=== PATIENT | male | born 1940 | race Caucasian/White ===

== ENCOUNTER → 2020-09-14 | Day surgery (SDC) | payer OTHER, BC ==
[~2020-09-14] VITALS: Ht 182.9 cm; Wt 99.8 kg
[~2020-09-14] MED LIST: ALLOPURINOL 10100 M1 PO; DILTIAZEM 24HR240 M1 PO; ELIQUIS5 MG PO; RAMIPRIL10 MG PO; TAMSULOSIN HCL0.4 MG PO
--- NOTE | 2020-09-15 17:10 | PATH ---
[facility] [place] [address] PATHOLOGY RPT PROCEDURE Name: NILSA GALEANA Room #: REG [facility] M.R.#: [id number] Admission: 09/14/20 Date of : 38 Discharge: Report #: [id number] Path Case #: [id number] [facility] Accession Number: [id number] . 01 Material submitted: . eyelid - RIGHT LOWER EYE LID-F.S.. Modifiers: right, lower . 01 Clinical history: . SKIN RIGHT LOWER LID, EXCISION - NO DEFINITIVE INVASIVE CARCINOMA EXCISION BASAL CELL CARCINOMA . 02 Frozen section diagnosis: . FROZEN SECTION DIAGNOSIS (Dr. Teressa Brewer) . FSA1. Skin, right lower lid, excision: - No definitive invasive carcinoma identified at margins on FS slides. . These findings are discussed with Dr. Jv Khanna in OR-6 at [facility] and a written report is placed in the patient's chart. . . GROSS DESCRIPTION Specimen is received fresh from the OR labeled with the patient's name, and "right lower eyelid", consists of an inverted triangular specimen measuring 1 cm from base to height and about 0.6 cm at base. The specimen is oriented as medial inferior and lateral. The medial margin is inked black, the inferior half of the lateral margin is inked blue, and the superior half of the lateral margin is inked green. At this point, the specimen is sectioned into 3 pieces and submitted for frozen section entirely as FSA1, this is subsequently submitted for permanent sections as A1. (IUV:aprn; 09/14/2020) . Frozen section performed at [facility], [address] , [place] [address]. IZV/MBR . 02 Diagnosis: Skin, right lower eyelid, excision: - No evidence of malignancy present within the current excision. - Chronic inflammation with reactive changes. - New margins of resection widely free of malignancy. (IUV:juan miguel; 09/15/2020) QMS 09/15/2020 1616 Local . 02 Electronically signed: . [facility] [address] [place] [address] PATHOLOGY RPT PROCEDURE Name: NILSA GALEANA Room #: REG [facility] Cortes#: [id number] Admission: 09/14/20 Date of : 38 Discharge: Report #: [id number] Path Case #: [id number] Teressa Brewer MD, Pathologist NPI- [id number] . 03 Gross description: . PLEASE SEE GROSS DESCRIPTION UNDER FROZEN SECTION DIAGNOSIS. /MBR 09/15/2020 1413 Local . 02 Pathologist provided ICD-10: L08.9 . 02 CPT . 519215, [id number] Specimen Comment: A courtesy copy of this report has been sent to [phone] Specimen Comment: Report sent to Performed at: [address], [place], [place] [id number] MD Tree Voss MD Phone: [phone] Performed at: [address] [id number] MD Teressa Brewer MD Phone: [phone] Performed at: [address], [place], [place] [id number] MD Antonino Phillips MD Phone: [phone]
--- NOTE | 2020-09-18 06:17 | O ---
[facility] [place] [address] OPERATIVE REPORT Name: NILSA GALEANA Room #: [place] [facility] [place]#: [id number] Admission: 09/14/20 Attend Phys: Jv Khanna MD Discharge: Date of : 38 Report #: [id number] THIS REPORT FOR: cc: Physician not on staff Physician not on staff Jv Khanna MD ~ cc: Naty Ramirez DATE OF SERVICE: 09/14/2020 PREOPERATIVE DIAGNOSIS: Basal cell carcinoma of right lower lid. POSTOPERATIVE DIAGNOSIS: Basal cell carcinoma of right lower lid. PROCEDURE: Excision of basal cell carcinoma of right lower lid and cheek with frozen section control of margins and myocutaneous flap repair of defect. SURGEON: Dr. Jv Khanna. RELATIONSHIP MANAGEMENT LEAD: None. ANESTHESIA: MAC. COMPLICATIONS: None. INDICATIONS FOR SURGERY: This pleasant 80-year-old gentleman has a biopsy proven basal cell carcinoma in his medial right lower lid. He presents today for excision of his residual tumor with frozen sections and subsequent reconstruction of that defect. Informed consent was obtained to include but not limited to the potential risk for loss of vision, bleeding, infection, failure to improve the problem, the potential need for further surgery or treatment. DESCRIPTION OF PROCEDURE: The patient was taken to the operating room where 2% Xylocaine with epinephrine mixed with equal parts 0.75% Marcaine with Wydase was administered transcutaneously and transconjunctivally to the right lower lid, the right medial canthus, right lateral canthus and the right cheek. The patient was subsequently prepped and draped in the usual sterile fashion. A fine tip skin marking pen was then used to outline the lesion including approximately 2 mm of normal appearing tissue. The incisions were then made perpendicularly across the eyelid margin and drawn to a point in the premalar space. Hemostasis was achieved with diligent pinpoint monopolar cautery. The specimen was then oriented on a drawing for the waiting pathologist. She snap froze the specimen and found that our margins were clear. A myocutaneous flap was then developed laterally to be rotated medially to correct the defect. Hemostasis was then re-achieved. This flap was then [address] [address] OPERATIVE REPORT Name: NILSA GALEANA Room #: [place] [facility] [place].#: [id number] Admission: 09/14/20 Attend Phys: Jv Khanna MD Discharge: Date of : 38 Report #: [id number] advanced and secured with multiple interrupted Vicryl sutures, deep. The tarsal plate was reapproximated with interrupted Vicryl sutures. The eyelid margin was reapproximated with interrupted 7-0 Vicryl sutures. The subcutaneous structures and the skin were superficially reapproximated with a subcutaneous layer of Vicryl sutures followed by a final closure of 6-0 plain. The wounds were then cleaned and dressed with erythromycin ophthalmic ointment. The patient subsequently transported to the recovery area having tolerated the procedures well with no anesthetic or operative complications being noted. <ELECTRONICALLY SIGNED> By: Jv Khanna MD 09/18/20 0617 1351 1812 Jv Khanna MD /nt
== END | disposition home or self-care (01) ==
LOC: OR 08:41
PROVIDERS: ATTEND Ophthalmology
DX: H01.8 Other specified inflammations of eyelid (principal); L08.9 Local infection of the skin and subcutaneous tissue, unspecified; I10 Essential (primary) hypertension; I48.91 Unspecified atrial fibrillation; F32.9 Major depressive disorder, single episode, unspecified; K21.9 Gastro-esophageal reflux disease without esophagitis; Z87.891 Personal history of nicotine dependence; Z98.890 Other specified postprocedural states; Z79.899 Other long term (current) drug therapy; Z96.653 Presence of artificial knee joint, bilateral; Z88.8 Allergy status to other drugs, medicaments and biological substances; Z79.01 Long term (current) use of anticoagulants; Z85.828 Personal history of other malignant neoplasm of skin
CPT/HCPCS: 50010; 50101; 50386; 50398; 51636; 56528; 56531; 62110; 62850; 70005